=== PATIENT | female | born 1995 | race Caucasian/White ===

== ENCOUNTER 2018-09-08 12:07 | Outpatient (CLI) | payer OTHER ==
--- NOTE | 2018-09-08 14:07 | XRAY Report ---
Reason: INVERSION 09/05/18 Procedure Date: 09/08/2018 Accession Number: [id number] / [id number] Procedure: XR - Ankle 3 View LT CPT Code: FULL RESULT: EXAM: LEFT ANKLE RADIOGRAPHY EXAM DATE: 09/08/2018 12:17 PM. CLINICAL HISTORY: INVERSION 09/05/18. COMPARISON: None. TECHNIQUE: 3 views. FINDINGS: Bones: Normal. No fractures or bone lesions. Joints: Normal. No effusion. No subluxations. The ankle mortise is normally aligned. Soft Tissues: Mild lateral soft tissue swelling. IMPRESSION: No fracture or malalignment. RADIA
== END 2018-09-08 12:08 | disposition home or self-care (01) ==
LOC: DI 12:07
PROVIDERS: ATTEND Family Medicine
DX: S93.402A Sprain of unspecified ligament of left ankle, initial encounter (principal)

== ENCOUNTER 2018-10-19 18:55 | Outpatient (CLI) | payer OTHER ==
--- NOTE | 2018-10-20 14:57 | Ultrasound Report ---
Reason: TEST POSITIVE Procedure Date: 10/19/2018 Accession Number: [id number] / [id number] Procedure: US - OB First Trimester CPT Code: FULL RESULT: EXAM: FIRST TRIMESTER OBSTETRIC ULTRASOUND (Less than 11 weeks) EXAM DATE: 10/19/2018 07:25 PM. CLINICAL HISTORY: TEST POSITIVE. LMP: 09/02/2018. COMPARISONS: None. TECHNIQUE: Transabdominal and transvaginal ultrasound examination with static image documentation. CLINICAL DATES: EGA 6 weeks 5 days with MARGARITA 06/10/2019 based on LMP. ASSESSMENT: Gestational Sac: Single intrauterine. Embryo: CRL (crown-rump length) 3.6 mm = 6 weeks 0 days. Cardiac activity: 115 beats per minute. Yolk sac: None detected mm. Amniotic fluid: Not accurately assessed at this gestational age. Early placenta: Not visible at this gestational age. Other: No perigestational fluid collection demonstrated. MATERNAL STRUCTURES: Uterus: Anteverted. Unremarkable. Cervix: Closed. Right Ovary/Adnexa: The ovary measures 2.8 x 3.2 x 1.5 cm, volume 7 cc. Unremarkable. Left Ovary/Adnexa: The ovary measures 3.1 x 2.3 x 1.8 cm, volume 6.7 cc. Unremarkable. Free Fluid: None. Other: None. IMPRESSION: 1. Single viable intrauterine at EGA 6 weeks 0 days with MARGARITA 06/14/2019 based on crown-rump length, which is concordant with clinical dates. 2. Assigned dating is MARGARITA 06/10/2019 based on LMP. 3. No complications such as a subchorionic hemorrhage. 4. Both ovaries and adnexa are normal. RADIA
== END 2018-10-19 18:56 | disposition home or self-care (01) ==
LOC: DI 18:55
PROVIDERS: ATTEND Nurse Practitioner Obstetrics & Gynecology
DX: Z32.01 Encounter for pregnancy test, result positive (principal)
CPT/HCPCS: 76801

== ENCOUNTER 2018-11-22 11:20 | Outpatient (CLI) | payer OTHER ==
[2018-11-22 11:51] LABS: BASOPHILS % (AUTO) 0.3 %; EOSINOPHILS # (AUTO) 0.1 10^3/uL (0.0-0.7); EOSINOPHILS % (AUTO) 1.2 %; HGB - HEMOGLOBIN 12.2 g/dL (12.0-16.0); LYMPHOCYTES # (AUTO) 2.3 10^3/uL (1.5-3.5); LYMPHOCYTES % (AUTO) 27.4 %; MEAN CORPUSCULAR HEMOGLOBIN 32.3 pg (27.0-31.0); MEAN CORPUSCULAR HGB CONC 35.3 g/dL (32.0-36.0); MEAN CORPUSCULAR VOLUME 91.5 fL (81.0-99.0); MONOCYTES # (AUTO) 0.6 10^3/uL (0.0-1.0); MONOCYTES % (AUTO) 7.2 %; NEUTROPHILS # (AUTO) 5.5 10^3/uL (1.5-6.6); NEUTROPHILS % (AUTO) 63.9 %; PLT - PLATELET COUNT 164 10^3/uL (130-450); RED BLOOD COUNT 3.78 10^6/uL (4.20-5.40); RED CELL DISTRIBUTION WIDTH 12.1 % (12.0-15.0); WHITE BLOOD COUNT 8.6 x10^3/uL (4.8-10.8)
[2018-11-22 11:51] LABS: BILIRUBIN,URINE NEGATIVE (NEGATIVE); GLUCOSE, URINE (UA) NEGATIVE (NEGATIVE); KETONES,URINE (UA) NEGATIVE (NEGATIVE); LEUKOCYTE ESTERASE, URINE NEGATIVE (NEGATIVE); NITRITE,URINE NEGATIVE (NEGATIVE); OCCULT BLOOD,URINE NEGATIVE (NEGATIVE); PH,URINE 6.5 PH (5.0-7.5); PROTEIN,URINE NEGATIVE (NEGATIVE); UROBILINOGEN,URINE 0.2 (NORMAL) E.U./dL (NORMAL)
[2018-11-22 11:52] LABS: CLARITY,URINE CLEAR (CLEAR)
[2018-11-22 11:54] LABS: BACTERIA,URINE None Seen /HPF (None Seen); RBC,URINE None Seen /HPF (0-5); SQUAMOUS EPITHELIAL CELL,UR FEW Squamous (<= Few)
[2018-11-23 12:12] LABS: HEPATITIS C ANTIBODY NON-REACTIVE (NON-REACTIVE)
[2018-11-23 12:13] LABS: HEPATITIS B SURFACE ANTIGEN NON-REACTIVE (NON-REACTIVE)
[2018-11-23 12:26] LABS: HIV AG/AB 4TH GEN NON-REACTIVE (NON-REACTIVE)
== END 2018-11-22 11:21 | disposition home or self-care (01) ==
LOC: LAB 11:20
PROVIDERS: ATTEND Registered Nurse
DX: Z33.1 Pregnant state, incidental (principal)
CPT/HCPCS: 36415; 81001; 81599; 85025; 86592; 86762; 86803; 86850; 86900; 86901; 87340; 87389

== ENCOUNTER 2019-01-19 13:41 | Outpatient (CLI) | payer OTHER ==
--- NOTE | 2019-01-20 16:28 | Ultrasound Report ---
Reason: ENCOUNTER SCREEN/UNSPECIFIED Procedure Date: 01/19/2019 Accession Number: [id number] / [id number] Procedure: US - OB Detailed Eval CPT Code: FULL RESULT: EXAM: COMPLETE OBSTETRICAL ULTRASOUND EXAM DATE: 01/19/2019 04:05 PM. CLINICAL HISTORY: anatomic survey. COMPARISON: None. TECHNIQUE: Real-time sonographic evaluation of the fetus performed by the offset press operator helper. Multiple pharmacy services representative static images were saved for review. Additional transvaginal imaging to more accurately evaluate cervical length/placental position/etc. DATING: EGA 19 weeks/5 days with MARGARITA 06/10/19 based on prior established dates. EGA 18 weeks/5 days with MARGARITA 06/17/19 based on the current ultrasound. GENERAL EVALUATION Hodgson . Cardiac activity: 154 bpm. movement: Visualized. Presentation: C breech, variable Placenta: Fundal, posterior position. No evidence for previa. Umbilical cord: 3 vessel cord, not well documented. Central placental cord origin. Amniotic fluid: 12.98 cm subjectively normal. MVP 3.81 cm. BIOMETRY Bi-Parietal Diameter (BPD): 4.09 cm, 18 weeks/2 days Head Circumference (HC): 15.46 cm, 18 weeks/2 days Abdominal Circumference (AC): 14.69 cm, 19 weeks/6 days Femur Length (FL): 3.19 cm, 19 weeks/6 days Estimated Weight: 310 g, ANATOMY The intracranial structures, profile, face/nose/lips, spine, 4 chamber heart (suboptimal visualization of outflow tracts), stomach, abdominal wall and cord insertion, diaphragm, kidneys, bladder, and extremities were visualized and demonstrate no abnormality. MATERNAL STRUCTURES Uterus: Unremarkable. Cervix: Long and closed. Length 3.69 cm. IMPRESSION: 1. Hodgson live intrauterine with gestational age 18 weeks/5 days based on composite gestational age on current ultrasound. 2. Estimated weight is within expected limits for assigned dating. 3. Normal anatomic survey. No anatomic abnormalities are detected at this time. RADIA
== END 2019-01-19 13:42 | disposition home or self-care (01) ==
LOC: DI 13:41
PROVIDERS: ATTEND Nurse Practitioner Obstetrics & Gynecology
DX: Z36.9 Encounter for antenatal screening, unspecified (principal)
CPT/HCPCS: 76811

== ENCOUNTER 2019-03-15 08:45 | Outpatient (CLI) | payer OTHER ==
[2019-03-15 10:13] LABS: HGB - HEMOGLOBIN 12.4 g/dL (12.0-16.0); MEAN CORPUSCULAR HEMOGLOBIN 32.7 pg (27.0-31.0); MEAN CORPUSCULAR HGB CONC 33.8 g/dL (32.0-36.0); MEAN CORPUSCULAR VOLUME 96.7 fL (81.0-99.0); MEAN PLATELET VOLUME 9.1 fL (7.9-10.8); RED BLOOD COUNT 3.78 10^6/uL (4.20-5.40); RED CELL DISTRIBUTION WIDTH 12.2 % (12.0-15.0); WHITE BLOOD COUNT 12.3 x10^3/uL (4.8-10.8)
== END 2019-03-15 08:46 | disposition home or self-care (01) ==
LOC: LAB 08:45
PROVIDERS: ATTEND Nurse Practitioner Obstetrics & Gynecology
DX: Z36.89 Encounter for other specified antenatal screening (principal)
CPT/HCPCS: 36415; 82950; 85027; 86850

== ENCOUNTER 2019-04-13 08:00 | Outpatient (CLI) | payer OTHER | END 2019-04-13 23:59 | disposition home or self-care (01) | LOC: LAB.R 08:00 | PROVIDERS: ATTEND Nurse Practitioner Obstetrics & Gynecology | DX: R82.79 Other abnormal findings on microbiological examination of urine (principal) | CPT/HCPCS: 87086 ==

== ENCOUNTER 2019-05-02 11:38 | Outpatient (CLI) | payer OTHER | END 2019-05-02 23:59 | disposition home or self-care (01) | LOC: LAB.R 11:38 | PROVIDERS: ATTEND Nurse Practitioner Obstetrics & Gynecology | DX: R82.998 Other abnormal findings in urine (principal) | CPT/HCPCS: 87086 ==

== ENCOUNTER 2019-05-16 10:09 | Outpatient (CLI) | payer OTHER ==
[2019-05-16 21:51] LABS: TRICHOMONAS VAGINALIS DNA NEGATIVE (NEGATIVE)
== END 2019-05-16 23:59 | disposition home or self-care (01) ==
LOC: LAB.R 10:09
PROVIDERS: ATTEND Nurse Practitioner Obstetrics & Gynecology
DX: Z36.85 Encounter for antenatal screening for Streptococcus B (principal); Z36.89 Encounter for other specified antenatal screening
CPT/HCPCS: 87491; 87591; 87661; 87797

== ENCOUNTER 2022-08-20 09:21 | Outpatient (CLI) | payer OTHER ==
[2022-08-20 10:39] LABS: HCT - HEMATOCRIT 34.6 % (37.0-47.0); HGB - HEMOGLOBIN 11.5 g/dL (12.0-16.0); MEAN CORPUSCULAR HEMOGLOBIN 32.4 pg (27.0-31.0); MEAN CORPUSCULAR HGB CONC 33.2 g/dL (32.0-36.0); MEAN CORPUSCULAR VOLUME 97.5 fL (81.0-99.0); MEAN PLATELET VOLUME 11.4 fL (7.9-10.8); RED BLOOD COUNT 3.55 10^6/uL (4.20-5.40); RED CELL DISTRIBUTION WIDTH 12.1 % (12.0-15.0); WHITE BLOOD COUNT 11.3 x10^3/uL (4.8-10.8)
== END 2022-08-20 09:22 | disposition home or self-care (01) ==
LOC: LAB 09:21
PROVIDERS: ATTEND Nurse Practitioner Obstetrics & Gynecology
DX: Z36.9 Encounter for antenatal screening, unspecified (principal)
CPT/HCPCS: 36415; 82950; 85027

== ENCOUNTER 2022-09-29 03:43 | Emergency (ER) | payer OTHER ==
--- NOTE | 2022-09-29 04:20 | ED Physician Documentation ---
History of Present Illness - Stated complaint Stated Complaint: FEVER/COUGH - Chief complaint Chief Complaint: Fever - History obtained from History obtained from: Patient - History of Present Illness Timing: Today Improved by: nothing Worsened by: no exacerbating factors - Additonal information Additional information: patient is 32 weeks . 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 Took tylenol 7 PM tonight. Review of Systems Constitutional: reports: Fever, Chills, Sweats Ears: denies: Ear pain Throat: reports: Sore throat Respiratory: reports: Cough. denies: Dyspnea GI: denies: Abdominal Pain : reports: Now EGA (33) Neurologic: reports: Headache PD PAST MEDICAL HISTORY - Past Medical History Cardiovascular: None Respiratory: None Neuro: None Endocrine/Autoimmune: None GI: None : None Musculoskeletal: None - Past Surgical History Past Surgical History: No - Allergies Allergies/Adverse Reactions: Allergies Allergy/AdvReac Type Severity Reaction Status Date / Time amoxicillin Allergy Rash Verified 09/29/22 04:01 - Social History Does the pt smoke?: No Smoking Status: Never smoker Does the pt drink ETOH?: Yes Does the pt have substance abuse?: No PD ED PE NORMAL - Vitals Vital signs reviewed: Yes - General General: Alert and oriented X 3, No acute distress, Well developed/nourished - HEENT HEENT: Moist mucous membranes, Pharynx benign - Neck Neck: Supple, no meningeal sign - Respiratory Respiratory: No respiratory distress, Clear bilaterally Results - Vitals Vitals: Vital Signs - 24 hr 09/29/22 09/29/22 03:58 07:25 Temperature 36.9 C Heart Rate 87 93 Respiratory 18 16 Rate Blood Pressure 112/86 H 104/66 O2 Saturation 98 100 Oxygen O2 Source Room air - Labs Labs: Laboratory Tests 09/29/22 05:13 Nasal Adenovirus (PCR) NOT DETECTED Nasal B. parapertussis DNA (PCR) NOT DETECTED Nasal Coronavir 229E PCR NOT DETECTED Nasal Coronavir HKU1 PCR NOT DETECTED Nasal Coronavir NL63 PCR NOT DETECTED Nasal Coronavir OC43 PCR NOT DETECTED Nasal Enterovir/Rhinovir PCR NOT DETECTED Nasal Influenza B PCR NOT DETECTED Nasal Influenza A PCR NOT DETECTED Nasal Parainfluen 1 PCR NOT DETECTED Nasal Parainfluen 2 PCR NOT DETECTED Nasal Parainfluen 3 PCR NOT DETECTED Nasal Parainfluen 4 PCR NOT DETECTED Nasal RSV (PCR) NOT DETECTED Nasal B.pertussis DNA PCR NOT DETECTED Nasal C.pneumoniae (PCR) NOT DETECTED Toi Human Metapneumo PCR NOT DETECTED Nasal M.pneumoniae (PCR) NOT DETECTED Nasal SARS-CoV-2 (PCR) DETECTED A PD MEDICAL DECISION MAKING - ED course Complexity details: reviewed results, re-evaluated patient, considered differential, d/w patient ED course: Positive for SARS-COV19, negative for all other viruses tested (respiratory PCR panel). She is in NAD, lungs CTA bilaterally. I discussed options for treatment, specifically Paxlovid. This is provided to her, and I recommended she take as directed (directions provided in the kit provided). 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 The CDC guidelines put you at higher risks of complications from COVID (because your are ). You are being provided a kit that has two anti-viral medications with instructions on how to take them. These medications can shorten the course and lessen the severity of COVID infection. You should go to the CDC website (cdc.gov) and on the first page, search for "covid isolation", then click on "isolation and precautions for people with COVID-19". There is a calculator tool that will provide recommendations, specifically how long you should isolate (to prevent exposure to others). Discharge Date/Time: 09/29/22 07:26
--- OUTSIDE RECORDS SUMMARY | 2022-09-29 04:31 | EXTERNAL MEDICAL SUMMARY RPT | Continuity of Care Document ---
:1995 Author Organization [facility] Address [address] [place] [address] Phone Allergies No information. Encounters No information. Functional Status No information. Immunizations No information. Medications No information. Problems No information. Procedures No information. Results/Labs test date author facility value unit interpret ation Result panel 1 (unknown) (no (unknown) (unknown) (no value) (units (unk nown) date) unknown) (unknown) (no (unknown) (unknown) [id number] (units (unkno wn) date) unknown) (unknown) (no (unknown) (unknown) 07/08/22 (units (unkno wn) date) unknown) (unknown) (no (unknown) (unknown) 1. Single live (units (unknown) date) intrauterine unknown) gestation with fetus in vertex presentation. (unknown) (no (unknown) (unknown) [address] (units (unkn own) date) Street unknown) (unknown) (no (unknown) (unknown) 2. Normal (units (unkn own) date) placental cord unknown) insertion. Normal kidneys, bilateral feet and (unknown) (no (unknown) (unknown) A single living (units (unknown) date) intrauterine unknown) gestation is present. (unknown) (no (unknown) (unknown) Accession (units (unkn own) date) Number: unknown) [id number] (unknown) (no (unknown) (unknown) Age/Sex: 26 / F (units (unknown) date) Date of Service: unknown) (unknown) (no (unknown) (unknown) Amniotic fluid (units (unknown) date) index: 15 cm, unknown) normal range is 5-24 cm. (unknown) (no (unknown) (unknown) [place] (units ( unknown) date) [id number] unknown) (unknown) (no (unknown) (unknown) Approved by: (units (u nknown) date) Douglas Justin M.D. unknown) on 07/08/2022 at 16:43 (unknown) (no (unknown) (unknown) COMPARISON: (units (un known) date) [facility], unknown) US, US OB >= 14 WEEKS FETUS, 06/27/2022, 11:15. (unknown) (no (unknown) (unknown) : 1995 (units (unknown) date) Acct:[id number] unknown) (unknown) (no (unknown) (unknown) Dictated by: (units (u nknown) date) Douglas Justin M.D. unknown) on 07/08/2022 at 16:41 (unknown) (no (unknown) (unknown) Endovaginal (units (un known) date) scanning: Not unknown) indicated (unknown) (no (unknown) (unknown) Estimated date (units (unknown) date) of delivery unknown) (MARGARITA) from first dating scan: 11/15/2022 (unknown) (no (unknown) (unknown) Estimated (units (unkn own) date) gestational age unknown) from initial scan: 21 weeks, 3 days. (unknown) (no (unknown) (unknown) FINDINGS: (units (unkn own) date) unknown) (unknown) (no (unknown) (unknown) heart (units (un known) date) rate: 160 beats unknown) per minute. (unknown) (no (unknown) (unknown) spine, (units (u nknown) date) kidneys, unknown) placental cord insertion and bilateral feet are (unknown) (no (unknown) (unknown) First dating (units (u nknown) date) scan (date and unknown) location): 06/27/2022. (unknown) (no (unknown) (unknown) IMPRESSION: (units (un known) date) unknown) (unknown) (no (unknown) (unknown) INDICATIONS: (units (u nknown) date) FOLLOW UP unknown) ANATOMY (unknown) (no (unknown) (unknown) [facility] (units (unknown) date) unknown) (unknown) (no (unknown) (unknown) LMP-based (units (unkn own) date) estimated date unknown) of delivery (MARGARITA): 11/14/2022 (unknown) (no (unknown) (unknown) Last menstrual (units (unknown) date) period (LMP): unknown) 02/07/2022 (unknown) (no (unknown) (unknown) Loc: [place] (units (unkno wn) date) unknown) (unknown) (no (unknown) (unknown) Maternal (units (unkno wn) date) cervical canal: unknown) 4.0 cm long. Normal lower limit is 2.5 cm. (unknown) (no (unknown) (unknown) OUTSIDE/PRIOR (units ( unknown) date) DATING DATA: unknown) (unknown) (no (unknown) (unknown) Ordering (units (unkno wn) date) Provider: unknown) Boo Crane C.N.MMilka (unknown) (no (unknown) (unknown) PROCEDURE: US (units ( unknown) date) OB FOLLOW UP unknown) (unknown) (no (unknown) (unknown) Patient: (units (unkno wn) date) Samia [facility] unknown) MR#: [id number] (unknown) (no (unknown) (unknown) Placenta: (units (unkn own) date) Placental unknown) position is anterior, without previa. (unknown) (no (unknown) (unknown) Presentation: (units ( unknown) date) Vertex unknown) (unknown) (no (unknown) (unknown) Procedure: US (units ( unknown) date) OB follow up unknown) (unknown) (no (unknown) (unknown) Real-time (units (unkn own) date) scanning was unknown) performed of the fetus, with image documentation. (unknown) (no (unknown) (unknown) Signed (units (unkno wn) date) unknown) (unknown) (no (unknown) (unknown) Single deepest (units (unknown) date) vertical pocket unknown) is 4.4 cm. (unknown) (no (unknown) (unknown) TECHNIQUE: (units (unk nown) date) unknown) (unknown) (no (unknown) (unknown) The (units (unkno wn) date) calculations are unknown) made using the study generated MARGARITA of 11/15/2022. (unknown) (no (unknown) (unknown) Ultrasound (units (unk nown) date) Report unknown) (unknown) (no (unknown) (unknown) (units (unkno wn) date) unknown) (unknown) (no (unknown) (unknown) heart (units (unkno wn) date) unknown) (unknown) (no (unknown) (unknown) rate is 160 (units (un known) date) beats per unknown) minute. Normal amount of amniotic fluid. (unknown) (no (unknown) (unknown) spine. (units (unkno wn) date) unknown) (unknown) (no (unknown) (unknown) visualized and (units (unknown) date) are unknown) (unknown) (no (unknown) (unknown) within normal (units ( unknown) date) limits. unknown) Social History No information. Vital Signs No information.
[2022-09-29 06:12] LABS: CORONAVIRUS 229E-RESP PCR NOT DETECTED; CORONAVIRUS HKU1-RESP PCR NOT DETECTED; CORONAVIRUS NL63-RESP PCR NOT DETECTED; CORONAVIRUS OC43-RESP PCR NOT DETECTED
[2022-09-29 06:13] LABS: B. PARAPERTUSSIS- RESP PCR PAN NOT DETECTED; B. PERTUSSIS- RESP PCR PANEL NOT DETECTED; C. PNEUMONIAE- RESP PCR PANEL NOT DETECTED; HUMAN METAPNEUMOVIRUS NOT DETECTED; INFLUENZA A- RESP PCR PANEL NOT DETECTED; INFLUENZA B - RESP PCR PANEL NOT DETECTED; M. PNEUMONIAE- RESP PCR PANEL NOT DETECTED; PARAINFLUENZA VIRUS 1 NOT DETECTED; PARAINFLUENZA VIRUS 2 NOT DETECTED; PARAINFLUENZA VIRUS 3 NOT DETECTED; PARAINFLUENZA VIRUS 4 NOT DETECTED; RHINOVIRUS/ENTEROVIRUS NOT DETECTED; RSV- RESP PCR PANEL NOT DETECTED; SARS-CoV-2 -RESP PCR PANEL DETECTED
[2022-09-29] MEDS: NIRMATRELVIR/RITONAVIR PREPACK PO STA (07:21)
[2022-09-29 07:28] VITALS: BP 104/66
== END 2022-09-29 07:26 | disposition home or self-care (01) ==
LOC: ED 03:43
DX: O98.513 Other viral diseases complicating pregnancy, third trimester (principal); U07.1 COVID-19; Z3A.33 33 weeks gestation of pregnancy
CPT/HCPCS: 87633; 99282; 99283; J3490

== ENCOUNTER 2022-10-22 14:14 | Outpatient (CLI) | payer OTHER ==
[2022-10-22 14:38] LABS: BASOPHILS % (AUTO) 0.2 %; EOSINOPHILS # (AUTO) 0.1 10^3/uL (0.0-0.7); EOSINOPHILS % (AUTO) 1.4 %; HGB - HEMOGLOBIN 11.7 g/dL (12.0-16.0); LYMPHOCYTES # (AUTO) 2.3 10^3/uL (1.5-3.5); LYMPHOCYTES % (AUTO) 23.3 %; MEAN CORPUSCULAR HEMOGLOBIN 32.1 pg (27.0-31.0); MEAN CORPUSCULAR HGB CONC 33.4 g/dL (32.0-36.0); MEAN CORPUSCULAR VOLUME 96.2 fL (81.0-99.0); MEAN PLATELET VOLUME 12.2 fL (7.9-10.8); MONOCYTES # (AUTO) 0.8 10^3/uL (0.0-1.0); MONOCYTES % (AUTO) 8.1 %; NEUTROPHILS # (AUTO) 6.6 10^3/uL (1.5-6.6); NEUTROPHILS % (AUTO) 66.2 %; PLT - PLATELET COUNT 144 10^3/uL (130-450); RED BLOOD COUNT 3.64 10^6/uL (4.20-5.40); RED CELL DISTRIBUTION WIDTH 12.1 % (12.0-15.0)
== END 2022-10-22 14:15 | disposition home or self-care (01) ==
LOC: LAB 14:14
PROVIDERS: ATTEND Nurse Practitioner Obstetrics & Gynecology
DX: O99.119 Other diseases of the blood and blood-forming organs and certain disorders involving the immune mechanism complicating pregnancy, unspecified trimester (principal)
CPT/HCPCS: 36415; 85025

== ENCOUNTER 2023-06-10 07:48 | Outpatient (CLI) | payer OTHER ==
[2023-06-10 08:29] LABS: THYROID STIMULATING HORMONE 1.41 uIU/mL (0.34-5.60)
== END 2023-06-10 07:49 | disposition home or self-care (01) ==
LOC: LAB 07:48
PROVIDERS: ATTEND Nurse Practitioner Obstetrics & Gynecology
DX: E03.9 Hypothyroidism, unspecified (principal)
CPT/HCPCS: 36415; 84439; 84443

== ENCOUNTER 2023-12-23 09:28 | Outpatient (CLI) | payer OTHER ==
[2023-12-23 09:42] LABS: BASOPHILS % (AUTO) 0.5 %; EOSINOPHILS # (AUTO) 0.2 10^3/uL (0.0-0.7); EOSINOPHILS % (AUTO) 2.6 %; HCT - HEMATOCRIT 42.1 % (37.0-47.0); HGB - HEMOGLOBIN 13.9 g/dL (12.0-16.0); LYMPHOCYTES # (AUTO) 1.6 10^3/uL (1.5-3.5); LYMPHOCYTES % (AUTO) 25.3 %; MEAN CORPUSCULAR HEMOGLOBIN 30.6 pg (27.0-31.0); MEAN CORPUSCULAR VOLUME 92.7 fL (81.0-99.0); MEAN PLATELET VOLUME 11.8 fL (7.9-10.8); MONOCYTES # (AUTO) 0.8 10^3/uL (0.0-1.0); MONOCYTES % (AUTO) 12.7 %; NEUTROPHILS # (AUTO) 3.8 10^3/uL (1.5-6.6); NEUTROPHILS % (AUTO) 58.7 %; PLT - PLATELET COUNT 161 10^3/uL (130-450); RED BLOOD COUNT 4.54 10^6/uL (4.20-5.40); RED CELL DISTRIBUTION WIDTH 12.1 % (12.0-15.0); WHITE BLOOD COUNT 6.5 x10^3/uL (4.8-10.8)
[2023-12-23 09:44] LABS: BILIRUBIN,URINE NEGATIVE (NEGATIVE); GLUCOSE, URINE (UA) NEGATIVE (NEGATIVE); KETONES,URINE (UA) NEGATIVE (NEGATIVE); LEUKOCYTE ESTERASE, URINE NEGATIVE (NEGATIVE); NITRITE,URINE NEGATIVE (NEGATIVE); OCCULT BLOOD,URINE NEGATIVE (NEGATIVE); PH,URINE 6.5 PH (5.0-7.5); PROTEIN,URINE NEGATIVE (NEGATIVE); UROBILINOGEN,URINE 0.2 (NORMAL) E.U./dL (NORMAL)
[2023-12-23 09:46] LABS: CLARITY,URINE CLEAR (CLEAR)
[2023-12-23 10:14] LABS: ALBUMIN 4.2 g/dL (3.2-5.5); ALBUMIN/GLOBULIN RATIO 1.6 (1.0-2.2); ALKALINE PHOSPHATASE 60 IU/L (42-121); ALT ALANINE AMINOTRANSFERASE 22 IU/L (10-60); AST ASPARTATE AMINOTRANSFERASE 20 IU/L (10-42); BILIRUBIN,TOTAL 0.5 mg/dL (0.2-1.0); BUN - BLOOD UREA NITROGEN 13 mg/dL (6-20); CALCIUM 9.2 mg/dL (8.5-10.3); CARBON DIOXIDE - CO2 28 mmol/L (21-32); CHLORIDE 106 mmol/L (101-111); CHOLESTEROL 162 mg/dL; GFR - MDRD 65 (>89); GLUCOSE 87 mg/dL (74-104); HDL CHOLESTEROL 54 mg/dL; LDL CHOLESTEROL,CALCULATED 88 mg/dL; LDL/HDL RATIO 1.6 (<4.4); POTASSIUM 4.1 mmol/L (3.5-4.5); SODIUM 138 mmol/L (135-145); TOTAL PROTEIN 6.8 g/dL (6.4-8.9); TRIGLYCERIDES 99 mg/dL (48-352); VLDL CHOLESTEROL 20 mg/dL
[2023-12-23 10:28] LABS: RBC,URINE 0-5 /HPF (0-5); SQUAMOUS EPITHELIAL CELL,UR RARE Squamous (<= Few); WBC,URINE 0-3 /HPF (0-5)
[2023-12-23 10:29] LABS: BACTERIA,URINE Rare /HPF (None Seen)
== END 2023-12-23 09:29 | disposition home or self-care (01) ==
LOC: LAB 09:28
PROVIDERS: ATTEND Nurse Practitioner Family
DX: R79.1 Abnormal coagulation profile (principal); Z13.6 Encounter for screening for cardiovascular disorders; Z87.440 Personal history of urinary (tract) infections; N93.9 Abnormal uterine and vaginal bleeding, unspecified
CPT/HCPCS: 36415; 80053; 80061; 81001; 83721; 84443; 85025; 87086